=== PATIENT | female | born 1955 | race Caucasian/White ===

== ENCOUNTER 2017-05-02 17:36 | Emergency (ER) | payer BC ==
[~2017-05-02] VITALS: Ht 172.7 cm; Wt 73.6 kg
[2017-05-02 19:05] LABS: HEMATOCRIT 37.7 % (34.6-47.8); HEMOGLOBIN 12.6 g/dL (11.7-16.4); WHITE BLOOD COUNT 5.9 x10^3/uL (3.4-10)
[2017-05-02 19:09] LABS: ASPARTATE AMINO TRANSFERASE 13 U/L (15-37); BLOOD UREA NITROGEN 14 mg/dL (7-18)
[2017-05-02 19:27] VITALS: BP 145/90
== END 2017-05-02 19:43 | disposition home or self-care (01) ==
LOC: ED 19:20
DX: K92.1 Melena (principal); Z88.0 Allergy status to penicillin
CPT/HCPCS: 36415; 80053; 85025; 85610; 99284

== ENCOUNTER 2017-05-23 09:23 | Emergency (ER) | payer BC ==
[~2017-05-23] VITALS: Ht 172.7 cm; Wt 73.0 kg
[2017-05-23 09:25] VITALS: BP 146/84
[2017-05-23] MEDS ORDERED: SODIUM CHLORIDE FLUSH 10ML SYR IVF ONE (10:00)
[2017-05-23] MEDS ORDERED: SODIUM CHLORIDE 0.9% 1,000ML IVBOLUS ONE (10:00)
[2017-05-23] MEDS ORDERED: ONDANSETRON 2MG/ML, 2ML IVPush ONE (10:00)
[2017-05-23 10:15] LABS: HEMATOCRIT 38.4 % (34.6-47.8); HEMOGLOBIN 12.8 g/dL (11.7-16.4)
[2017-05-23 10:26] LABS: ASPARTATE AMINO TRANSFERASE 14 U/L (15-37); BLOOD UREA NITROGEN 12 mg/dL (7-18)
== END 2017-05-23 11:53 | disposition home or self-care (01) ==
LOC: ED 10:07
DX: K62.5 Hemorrhage of anus and rectum (principal)
CPT/HCPCS: 36415; 80053; 81003; 85025; 85610; 96360; 99284; J7030